=== PATIENT | female | born 1970 | race Caucasian/White ===

== ENCOUNTER 2019-07-07 23:00 | Emergency (ER) | payer OTHER ==
[~2019-07-07] VITALS: Ht 170.2 cm; Wt 66.3 kg
[2019-07-07 23:10] VITALS: BP 104/58
== END 2019-07-08 00:52 | disposition home or self-care (01) ==
LOC: ED 23:00
DX: M06.9 Rheumatoid arthritis, unspecified (principal); M25.532 Pain in left wrist; F17.210 Nicotine dependence, cigarettes, uncomplicated; Z88.0 Allergy status to penicillin; Z87.442 Personal history of urinary calculi; Z90.89 Acquired absence of other organs

== ENCOUNTER 2019-07-12 13:23 | Emergency (ER) | payer OTHER ==
[~2019-07-12] VITALS: Ht 170.2 cm; Wt 66.7 kg
[2019-07-12 13:46] VITALS: Ht 170.2 cm; Wt 66.7 kg
[2019-07-12 14:20] LABS: PLATELET COUNT 269 x10^3mcL (130-400); RED CELL DISTRIBUTION WIDTH 13.9 % (11.5-14.5)
[2019-07-12 17:36] VITALS: BP 121/76
== END 2019-07-12 17:35 | disposition home or self-care (01) ==
LOC: ED 13:23
PROVIDERS: Emergency Medicine
DX: L03.116 Cellulitis of left lower limb (principal); M06.9 Rheumatoid arthritis, unspecified; D21.9 Benign neoplasm of connective and other soft tissue, unspecified; Z87.442 Personal history of urinary calculi; Z88.0 Allergy status to penicillin
CPT/HCPCS: 36415; 85378; J1885

== ENCOUNTER 2019-10-20 19:21 | Emergency (ER) | payer OTHER ==
[~2019-10-20] VITALS: Ht 167.6 cm; Wt 65.8 kg
[2019-10-20 19:30] VITALS: Ht 167.6 cm; Wt 65.8 kg
[2019-10-20 20:10] VITALS: BP 119/62
== END 2019-10-20 20:10 | disposition home or self-care (01) ==
LOC: ED 19:21
DX: S81.811A Laceration without foreign body, right lower leg, initial encounter (principal); Z87.442 Personal history of urinary calculi; Z88.0 Allergy status to penicillin; W25.XXXA Contact with sharp glass, initial encounter; Y93.89 Activity, other specified; Y92.89 Other specified places as the place of occurrence of the external cause; Y99.8 Other external cause status
CPT/HCPCS: J2001

== ENCOUNTER 2019-10-22 17:06 | Emergency (ER) | payer OTHER ==
[~2019-10-22] VITALS: Ht 170.2 cm; Wt 65.3 kg
[2019-10-22 17:10] VITALS: Ht 170.2 cm; Wt 65.3 kg
[2019-10-22 17:36] VITALS: BP 117/63
== END 2019-10-22 17:36 | disposition home or self-care (01) ==
LOC: ED 17:06
DX: S81.811D Laceration without foreign body, right lower leg, subsequent encounter (principal); M06.9 Rheumatoid arthritis, unspecified; Z88.0 Allergy status to penicillin; X58.XXXD Exposure to other specified factors, subsequent encounter

== ENCOUNTER 2019-10-29 20:48 | Emergency (ER) | payer OTHER ==
[~2019-10-29] VITALS: Ht 170.2 cm; Wt 65.8 kg
[2019-10-29 20:52] VITALS: Ht 170.2 cm; Wt 65.8 kg
[2019-10-29 22:00] VITALS: BP 117/69
== END 2019-10-29 22:00 | disposition home or self-care (01) ==
LOC: ED 20:48
DX: S81.811D Laceration without foreign body, right lower leg, subsequent encounter (principal); X58.XXXD Exposure to other specified factors, subsequent encounter

== ENCOUNTER 2020-03-08 18:28 | Emergency (ER) | payer OTHER ==
[~2020-03-08] VITALS: Ht 170.2 cm; Wt 64.0 kg
[2020-03-08 19:02] VITALS: Ht 170.2 cm; Wt 64.0 kg
[2020-03-08 19:56] VITALS: BP 117/57
== END 2020-03-08 19:55 | disposition home or self-care (01) ==
LOC: ED 18:28
DX: S63.501A Unspecified sprain of right wrist, initial encounter (principal); S60.211A Contusion of right wrist, initial encounter; F17.210 Nicotine dependence, cigarettes, uncomplicated; Z88.0 Allergy status to penicillin; W22.8XXA Striking against or struck by other objects, initial encounter; Y93.89 Activity, other specified; Y92.89 Other specified places as the place of occurrence of the external cause; Y99.8 Other external cause status

== ENCOUNTER 2020-05-05 19:52 | Emergency (ER) | payer OTHER, SELFPAY ==
[~2020-05-05] VITALS: Ht 170.2 cm; Wt 64.9 kg
[2020-05-05 19:55] VITALS: Ht 170.2 cm; Wt 64.9 kg
[2020-05-05 21:01] VITALS: BP 138/60
== END 2020-05-05 21:01 | disposition home or self-care (01) ==
LOC: ED 19:52
DX: J06.9 Acute upper respiratory infection, unspecified (principal); M06.9 Rheumatoid arthritis, unspecified; Z20.828 Contact with and (suspected) exposure to other viral communicable diseases; Z88.0 Allergy status to penicillin
CPT/HCPCS: U0003

== ENCOUNTER 2020-06-17 22:44 | Emergency (ER) | payer OTHER ==
[~2020-06-17] VITALS: Ht 170.2 cm; Wt 63.0 kg
[2020-06-17 23:18] VITALS: Ht 170.2 cm; Wt 63.0 kg
[2020-06-18 01:00] VITALS: BP 96/58
== END 2020-06-18 01:00 | disposition home or self-care (01) ==
LOC: ED 22:44
DX: S29.012A Strain of muscle and tendon of back wall of thorax, initial encounter (principal); Z87.442 Personal history of urinary calculi; Z88.0 Allergy status to penicillin; V49.49XA Driver injured in collision with other motor vehicles in traffic accident, initial encounter; Y93.I9 Activity, other involving external motion; Y92.488 Other paved roadways as the place of occurrence of the external cause; Y99.8 Other external cause status
CPT/HCPCS: 72072